=== PATIENT | male | born 1955 | race African-American/Black ===

== ENCOUNTER 2016-10-14 05:10 | Day surgery (SDC) | payer BC, OTHER ==
[~2016-10-14] VITALS: Ht 177.8 cm; Wt 96.0 kg
--- NOTE | ~2016-10-14 | O ---
[facility] [place] [address] OPERATIVE REPORT Name: ELENO ASHRAF Room #: 150-2 [facility]..#: [id number] Admission: 10/14/16 Attend Phys: Marcial Lozoya MD Discharge: Date of : 53 Report #: [id number] THIS REPORT FOR: //name// CC: Oswald Matamoros DO Marcial Lozoya DATE OF SERVICE: 10/14/[address] Marcial Lozoya and also patient of Dr. Matamoros. PREOPERATIVE DIAGNOSIS: Umbilical hernia. POSTOPERATIVE DIAGNOSIS: Umbilical hernia. PROCEDURE: Umbilical hernia repair. SURGEON: Marcial Lozoya M.D. ANESTHESIA: Local IV sedation. DESCRIPTION OF PROCEDURE: The patient was brought to the operating room and placed on the operative table in the supine position. Sequential compression devices were in place for DVT prophylaxis. There is no indication for preoperative antibiotics. The patient underwent IV sedation. The abdomen was then prepped and draped in a sterile fashion. Skin and subcutaneous tissue was then infiltrated using 0.5% Marcaine and 1% Xylocaine in a 1:1 mixture. A transverse supraumbilical skin incision was then performed using #15 scalpel blade. Hemostasis obtained using electrocautery. Dissection was carried down through the subcutaneous tissue, the hernia sac which was dissected free and reduced through the fascial defect. The fascial defect was then repaired, repairing the hernia using interrupted [id number] #1 Prolene sutures. Deep and superficial subcutaneous tissue was then reapproximated using simple interrupted 2-0 chromic sutures and the umbilicus was tacked to the fascia using simple interrupted 2-0 chromic suture. The skin was then closed using a running 4-0 subcuticular Vicryl stitch. The wound was then dressed with Dermabond, Telfa, 4 x 4s, ____ and tape. The patient was then taken to the recovery room awake, alert and in good condition. Estimated blood loss was approximately 5 mL, and the patient tolerated the procedure well. All sponge, lap and instrument counts correct times 2. <ELECTRONICALLY SIGNED> By: Marcial Lozoya MD 10/14/16 1200 [id number] [id number] Marcial Lozoya MD /nt
--- NOTE | ~2016-10-14 | EKG ---
[address] [address] ELECTROCARDIOGRAM REPORT Name: ELENO ASHRAF Room #: 150-2 [facility].#: [id number] Admission: 10/14/16 Attend Phys: Marcial Lozoya MD Discharge: Date of : 53 Report #: [id number] THIS REPORT FOR: //name// [facility] Test Date: 2016-10-14 Test Time: 07:28:29 Pat Name: ELENO ASHRAF Department: Room: 150 2 Gender: M Manager [employer]: MECHELLE : 1955 Requested By: Marcial Lozoya Order Number: [id number] MD: Pernell Serrano Measurements Intervals [place] Rate: 61 P: 47 NH: 141 QRS: -32 QRSD: 97 T: 28 QT: 416 QTc: 419 Interpretive Statements Sinus rhythm Abnormal R-wave progression, early transition Left ventricular hypertrophy No previous ECG available for comparison Electronically Signed On 10-14-2016 8:30:58 [employer] by Pernell Serrano [email or web address] <ELECTRONICALLY SIGNED> By: Pernell Serrano MD 10/14/1630 7 7 Pernell Serrano MD /RADHAMES
[~2016-10-14 05:10] MED LIST: AMARYL4 MG PO; HYDROCODONE-AP1 EAC6 PO; HYZAAR 100-251 EACH PO; HYZAAR 50-12.51 EACH PO; LANTUS SOL100 UNIT/1 SUBQ; LIPITOR40 MG PO; METFORMIN HCL500 MG PO; MOBIC7.5 MG PO; NEURONTIN 300300 M1 PO; NORVASC5 MG PO; PANTOPRAZOLE SO40 M1 PO
[2016-10-14 07:52] LABS: CALCIUM 9.4 mg/dL (8.5-10.1); POTASSIUM 3.5 mmol/L (3.5-5.1)
[2016-10-14 08:05] VITALS: BP 155/87
[2016-10-14] MEDS ORDERED: NORCO 5-325 TA1 EACH PO (10:14)
[2016-10-14 10:33] VITALS: BP 155/87
== END 2016-10-14 10:50 | disposition home or self-care (01) ==
LOC: OR 05:10 → TBA 05:10 → OR 08:55
PROVIDERS: Surgery
DX: K42.9 Umbilical hernia without obstruction or gangrene (principal); I10 Essential (primary) hypertension; E11.9 Type 2 diabetes mellitus without complications; Z87.891 Personal history of nicotine dependence; Z98.890 Other specified postprocedural states
CPT/HCPCS: 50010; 50101; 50386; 50417; 54118; 56524; 56525; 56526; 62110; 62900; 70005